=== PATIENT | male | born 1995 | race African-American/Black ===

== ENCOUNTER 2023-07-22 20:04 | Inpatient (IN) | payer OTHER ==
[~2023-07-22] VITALS: Ht 167.6 cm; Wt 60.4 kg
[2023-07-22] MEDS: MORPHINE SULFATE 4 MG/ML SYRINGE IVP ONE (20:37)
[2023-07-22] MEDS: SODIUM CHLORIDE 0.9% 1,000 ML IV ONE (20:37)
[2023-07-22 20:38] LABS: COVID AG,FIA SOURCE NASAL SWAB
[2023-07-22 20:42] LABS: HEMATOCRIT 30.6 % (41-53); HEMOGLOBIN 10.2 g/dL (13.5-17.5); MEAN CORPUSCULAR HEMOGLOBIN 28.9 pg (26.0-34.0); MEAN CORPUSCULAR HGB CONC 33.2 G/dL (31.0-37.0); MEAN CORPUSCULAR VOLUME 87 fL (80-100); PLATELET COUNT (AUTO) 382 K/uL (150-450); RED BLOOD CELL COUNT(AUTO) 3.51 MIL/uL (4.50-5.90); RED CELL DISTRIBUTION WIDTH 23.8 % (11.5-14.5); RETICULOCYTE % (AUTO) 8.1 % (0.5-2.3); WHITE BLOOD COUNT (AUTO) 20.8 K/uL (4.5-11.0)
[2023-07-22 21:06] LABS: APPEARANCE,URINE CLEAR (CLEAR); BILIRUBIN,URINE NEGATIVE (NEGATIVE); COLOR,URINE COLORLESS (YELLOW); GLUCOSE, URINE (UA) NEGATIVE (NEGATIVE); KETONES,URINE NEGATIVE (NEGATIVE); LEUKOCYTE ESTERASE ,URINE NEGATIVE (NEGATIVE); NITRATE,URINE NEGATIVE (NEGATIVE); OCCULT BLOOD,URINE NEGATIVE (NEGATIVE); PH,URINE 7.5 (5.0-8.0); PROTEIN,URINE NEGATIVE (NEGATIVE); SPECIFIC GRAVITIY, URINE 1.009 (1.003-1.030); UROBILINOGEN,URINE <=1.0 mg/dL (<=1.0)
[2023-07-22 21:08] LABS: ANION GAP 12 mmol/L (8-16); CALCIUM, TOTAL 9.3 mg/dL (8.8-10.5); CARBON DIOXIDE 27 mmol/L (22-29); CHLORIDE 97 mmol/L (98-107); CREATININE 0.87 mg/dL (0.60-1.30); GLOMERULAR FILTR. RATE CALC > 60 mL/min (>60); GLUCOSE,RANDOM 108 mg/dL (70-110); POTASSIUM 3.8 mmol/L (3.5-5.1); SODIUM SERUM 136 mmol/L (136-145); UREA NITROGEN, BLOOD 10 mg/dL (7-18)
[2023-07-22 21:14] LABS: ALANINE AMINOTRANSFERASE 18 U/L (12-78); ALBUMIN 4.6 g/dL (3.4-5.0); ALKALINE PHOSPHATASE 105 U/L (46-116); ASPARTATE AMINOTRANSFERASE 26 U/L (15-37); BILIRUBIN,TOTAL 4.2 mg/dL (0.1-1.0); TOTAL PROTEIN, SERUM 8.2 g/dL (6.4-8.2)
[2023-07-22 21:28] LABS: TROPONIN I-HIGH SENSITIVITY 158 ng/L (<76)
[2023-07-22] MEDS: MORPHINE SULFATE 2 MG/ML SYRINGE IVP ONE (21:41)
[2023-07-22] MEDS ORDERED: ZOLPIDEM TARTRATE 5 MG TABLET PO PRN (21:45)
[2023-07-22] MEDS ORDERED: MAGNESIUM HYDROXIDE SUSPENSION 30 ML UDCUP PO PRN (21:45)
[2023-07-22] MEDS ORDERED: ONDANSETRON HCL 4 MG/2 ML VIAL IVP PRN (21:45)
[2023-07-22] MEDS: SODIUM CHLORIDE 0.9% 1,000 ML IV SCH (21:50)
[2023-07-22 21:52] LABS: SARS-COV2 (COVID) ANTIGEN,FIA Negative (Negative)
[2023-07-22] MEDS: OxyCODONE HCL/ACETAMINOPHEN 5-325 MG TABLET PO PRN (23:08)
[2023-07-22] MEDS: HEPARIN SODIUM,PORCINE 5,000 UNITS/ML VIAL SQ SCH (23:13)
[2023-07-22 23:14] LABS: TROPONIN I-HIGH SENSITIVITY 158 ng/L (<76)
[2023-07-22 23:58] LABS: BAND NEUTROPHILS % (MANUAL) 5 % (0-5); BASOPHILS % (MANUAL) 1 % (0-2); EOSINOPHILS % (MANUAL) 1 % (1-6); LYMPHOCYTES % (MANUAL) 18 % (22-44); METAMYELOCYTES % 1 % (0-0); MONOCYTES % (MANUAL) 8 % (2-9); MYELOCYTES % 1 % (0-0); SEGMENTED NEUTROPHILS % 65 % (40-70); TOTAL CELLS COUNTED 100
[2023-07-23] LABS: RBC MORPHOLOGY COMMENT ABNORMAL RBC MORPH
[2023-07-23] MEDS: MORPHINE SULFATE 2 MG/ML SYRINGE IVP PRN (02:25)
[2023-07-23] MEDS: HYDROmorphone HCL 2 MG/ML SYRINGE IVP PRN (06:35)
[2023-07-23] MEDS: FOLIC ACID 1 MG TABLET PO SCH (09:00)
[2023-07-23] MEDS: FAMOTIDINE 20 MG TABLET PO SCH (09:00)
[2023-07-23] MEDS: DOCUSATE SODIUM 100 MG CAPSULE PO SCH (09:00)
[2023-07-23 20:15] VITALS: BP 128/74; PULSE 61; RESP 18; TEMP 98.7
[2023-07-23 20:30] LABS: TROPONIN I-HIGH SENSITIVITY 189 ng/L (<76)
[2023-07-23 21:15] VITALS: BP 131/68; PULSE 66; RESP 17; TEMP 98.5
[2023-07-24] VITALS (10 sets, daily range): BP systolic 122–145; BP diastolic 55–86; PULSE 65–104; RESP 17–19; TEMP 98.7–100.6
[2023-07-24 07:39] LABS: BASOPHILS % (AUTO) 0.4 % (0.0-2.0); EOSINOPHILS % (AUTO) 0.1 % (1.0-6.0); HEMATOCRIT 31.1 % (41-53); HEMOGLOBIN 10.4 g/dL (13.5-17.5); LYMPHOCYTES # (AUTO) 0.7 K/uL (1.0-4.8); LYMPHOCYTES % (AUTO) 3.5 % (22.0-44.0); MEAN CORPUSCULAR HEMOGLOBIN 29.4 pg (26.0-34.0); MEAN CORPUSCULAR HGB CONC 33.6 G/dL (31.0-37.0); MEAN CORPUSCULAR VOLUME 88 fL (80-100); MONOCYTES # (AUTO) 3.8 K/uL (0.1-1.0); MONOCYTES % (AUTO) 19.6 % (2.0-9.0); NEUTROPHILS # (AUTO) 14.7 K/uL (1.8-7.7); NEUTROPHILS % (AUTO) 76.4 % (40.0-70.0); PLATELET COUNT (AUTO) 228 K/uL (150-450); RED BLOOD CELL COUNT(AUTO) 3.55 MIL/uL (4.50-5.90); RED CELL DISTRIBUTION WIDTH 23.2 % (11.5-14.5); WHITE BLOOD COUNT (AUTO) 19.3 K/uL (4.5-11.0)
[2023-07-24 08:13] LABS: RBC MORPHOLOGY COMMENT ABNORMAL R
[2023-07-24 08:54] LABS: TROPONIN I-HIGH SENSITIVITY 172 ng/L (<76)
[2023-07-24] MEDS: ACETAMINOPHEN 325 MG TABLET PO PRN (09:28)
[2023-07-24] MEDS: *CLINICAL-LEVOFLOXACIN IVPB DOSING CLINICAL ONE (10:26)
[2023-07-24] MEDS: LEVOFLOXACIN 750 MG/D5% WATER 150 ML IV SCH (12:19)
[2023-07-25] VITALS (8 sets, daily range): BP systolic 105–147; BP diastolic 56–78; PULSE 71–94; RESP 17–20; TEMP 98.8–99.8
== END 2023-07-25 21:45 | disposition left against medical advice (07) | DRG 812 ==
LOC: EMS 20:05 → AHU 07-23 02:09 → 5S 07-23 19:47
PROVIDERS: ADMIT Internal Medicine; ATTEND Internal Medicine
DX: D57.00 Hb-SS disease with crisis, unspecified (principal); R65.10 Systemic inflammatory response syndrome (SIRS) of non-infectious origin without acute organ dysfunction; D72.829 Elevated white blood cell count, unspecified; Z20.822 Contact with and (suspected) exposure to COVID-19; Z53.29 Procedure and treatment not carried out because of patient's decision for other reasons; Z76.5 Malingerer [conscious simulation]; Z91.199 Patient's noncompliance with other medical treatment and regimen due to unspecified reason
CPT/HCPCS: 71045; 80053; 81003; 82248; 84484; 85025; 85045; 87040; 93005; 99285; J1170; J1644; J1956; J2270; J7030; 36415-L1; 36415-TC